=== PATIENT | female | born 1980 | race Caucasian/White ===

== ENCOUNTER 2017-07-17 10:58 | Emergency (ER) | payer OTHER ==
[~2017-07-17] VITALS: Ht 157.5 cm; Wt 124.7 kg
[~2017-07-17 10:58] MED LIST: Advil200 M1 PO; DOCU100 PO; Gas Relief80 MG PO; HYDACE5 PO; HYDR1TAB94 PO; IBUP800 PO; Milk Of Ma800 MG/5 M PO; Norco 5-325 Ta1 EACH PO; OXYACE5T PO; PREN-16 PO; PROM25 PO; Percocet 5-3251 EACH PO; Sprintec1 EACH PO; VICODIN 5-3001 EACH PO; Verotin-Gr Cap1 EACH PO; Zofran Odt4 MG SL; Zofran4 MG PO
[2017-07-17] MEDS ORDERED: IBUP600 PO (11:54)
== END 2017-07-17 12:21 | disposition home or self-care (01) ==
LOC: ER 10:58
DX: S93.401A Sprain of unspecified ligament of right ankle, initial encounter (principal); X50.9XXA Other and unspecified overexertion or strenuous movements or postures, initial encounter; Z88.5 Allergy status to narcotic agent
CPT/HCPCS: 29515; 73610; 99283

== ENCOUNTER 2018-08-16 07:03 | Emergency (ER) | payer OTHER ==
[~2018-08-16] VITALS: Ht 157.5 cm; Wt 122.5 kg
[~2018-08-16 07:03] MED LIST changes: +IBUP600 PO
== END 2018-08-16 08:35 | disposition home or self-care (01) ==
LOC: ER 07:03
DX: S93.402A Sprain of unspecified ligament of left ankle, initial encounter (principal); Z88.5 Allergy status to narcotic agent; X58.XXXA Exposure to other specified factors, initial encounter; Y99.0 Civilian activity done for income or pay
CPT/HCPCS: 73610; 73630; 99283-25

== ENCOUNTER 2018-10-13 06:01 | Day surgery (SDC) | payer OTHER ==
[~2018-10-13] VITALS: Ht 160 cm; Wt 130.3 kg
--- NOTE | 2018-10-13 09:29 | NUR ---
10/13/18 0929 Giulia Jacobo UP IN CHAIR, LEFT FOOT ELEVATED. BRISK CAP REFIL TO TOES ICE TO LEG. LYLY WATER AND COOKIES
== END 2018-10-13 10:01 | disposition home or self-care (01) ==
LOC: ORSCSDS 06:01
PROVIDERS: Podiatrist Foot & Ankle Surgery
PROC: 0SGG04Z Fusion of Left Ankle Joint with Internal Fixation Device, Open Approach (ICD-10-PCS; principal; 2018-10-13 07:30)
PROC: 0JBP0ZZ Excision of Left Lower Leg Subcutaneous Tissue and Fascia, Open Approach (ICD-10-PCS; principal; 2018-10-13 07:30)
PROC: 0SBG4ZZ Excision of Left Ankle Joint, Percutaneous Endoscopic Approach (ICD-10-PCS; principal; 2018-10-13 07:30)
DX: M25.372 Other instability, left ankle (principal); M24.272 Disorder of ligament, left ankle; S93.499A Sprain of other ligament of unspecified ankle, initial encounter; J45.909 Unspecified asthma, uncomplicated; E66.01 Morbid (severe) obesity due to excess calories; Z68.42 Body mass index [BMI] 45.0-49.9, adult
CPT/HCPCS: C1713; J0171; J0690; J1100; J2250; J2405; J2704; J3010; J7120

== ENCOUNTER 2019-06-01 18:01 | Emergency (ER) | payer OTHER ==
[~2019-06-01] VITALS: Ht 160 cm; Wt 133.4 kg
[2019-06-01] MEDS ORDERED: METF500 PO (18:28)
== END 2019-06-01 19:55 | disposition home or self-care (01) ==
LOC: ER 18:01
DX: S50.12XA Contusion of left forearm, initial encounter (principal); Z88.5 Allergy status to narcotic agent; Z79.84 Long term (current) use of oral hypoglycemic drugs; V43.52XA Car driver injured in collision with other type car in traffic accident, initial encounter
CPT/HCPCS: 73080; 99284-25